=== PATIENT | female | born 1950 | race Asian ===

== ENCOUNTER 2018-08-10 08:38 | Inpatient (IN) | payer OTHER ==
[~2018-08-10] VITALS: Ht 162.6 cm; Wt 68.9 kg
[2018-08-10] MEDS ORDERED: SODIUM CHLORIDE 0.9% 1,000 ML IV ONE (09:04)
[2018-08-10 09:38] LABS: HEMATOCRIT. 36.4 % (36.0-48.0); HEMOGLOBIN. 12.3 g/dL (12.0-16.0); MEAN CORPUSCULAR HEMOGLOBIN 32.8 pg (28.0-32.0); MEAN PLATELET VOLUME 10.1 fl (7.4-10.4); PLATELET 231 x1000/uL (130-400); RED BLOOD CELL COUNT 3.75 mill/uL (4.2-5.4); RED CELL DISTRIBUTION WIDTH 13.5 % (11.6-14.6)
[2018-08-10 09:43] LABS: CHLORIDE 92 mEq/L (98-107)
[2018-08-10 09:45] LABS: PARTIAL THROMBOPLASTIN TIME 30.1 sec (23.4-31.0)
[2018-08-10 09:46] LABS: ETHANOL BLOOD < 10 mg/dL
[2018-08-10 09:54] LABS: CREATINE KINASE MB FRACTION 2.9 ng/mL (0.5-3.6)
[2018-08-10 10:12] LABS: CREATINE KINASE 8185 IU/L (26-192)
[2018-08-10 10:40] LABS: PLATELET ESTIMATE NORMAL
[2018-08-10] MEDS ORDERED: VANCOMYCIN 1 G PREMIX 200 ML IV ONE (13:30)
[2018-08-10] MEDS ORDERED: PIPERACILLIN/TAZ 3.375G PREMIX 50 ML IV ONE (13:30)
[2018-08-10] MEDS ORDERED: DOCUSATE SODIUM 100MG CAPSULE PO PRN (16:45)
[2018-08-10] MEDS ORDERED: ONDANSETRON HCL 4MG/2ML INJ IV PRN (16:45)
[2018-08-10] MEDS ORDERED: DIPHENHYDRAMINE 50MG/ML VIAL IV PRN (16:45)
[2018-08-10] MEDS ORDERED: ACETAMINOPHEN 650MG SUPP PR PRN (16:45)
[2018-08-10] MEDS ORDERED: GUAIFENESIN 200MG/10ML SUGAR FREE UDC PO PRN (16:45)
[2018-08-10] MEDS ORDERED: CLONIDINE 0.1MG TABLET PO PRN (16:45)
[2018-08-10] MEDS ORDERED: HYDROCODONE/ACETAMINOPHEN 5/325MG TABLET PO PRN (16:45)
[2018-08-10] MEDS ORDERED: IPRATROPIUM/ALBUTEROL 0.5-3(2.5)MG/3ML NEB INH PRN (16:45)
[2018-08-10] MEDS ORDERED: MAGNESIUM/ALUMINUM HYDROXIDE/SIMETHICONE 30ML UDC PO PRN (16:45)
[2018-08-10] MEDS ORDERED: ACETAMINOPHEN 325MG TABLET PO PRN (16:45)
[2018-08-10] MEDS ORDERED: ACETAMINOPHEN 650MG/20.3ML UDC GT PRN (16:45)
[2018-08-10] MEDS: SODIUM CHLORIDE 0.9% 1,000 ML IV SCH (17:04)
[2018-08-10 18:24] LABS: CLARITY URINE CLEAR (CLEAR); COLOR URINE DARK YELLOW (YELLOW); KETONES URINE 1+ (NEGATIVE); LEUKOCYTE ESTERASE URINE NEGATIVE (NEGATIVE); NITRITE URINE NEGATIVE (NEGATIVE); OCCULT BLOOD URINE 3+ (NEGATIVE); PH URINE 5.5 (4.5-8.0); PROTEIN URINE 1+ (NEGATIVE); SPECIFIC GRAVITY URINE 1.023 (1.005-1.030)
[2018-08-10] MEDS ORDERED: POTASSIUM CHLORIDE 20MEQ TABLET SR PO SCH (18:30)
[2018-08-10] MEDS ORDERED: DEXTROSE 50% WATER 50ML SYRINGE IV PRN (18:30)
[2018-08-10 18:35] LABS: *AMPHETAMINES SCREEN URINE NEGATIVE (NEGATIVE)
[2018-08-10 18:36] LABS: *BARBITURATES SCREEN URINE NEGATIVE (NEGATIVE); *BENZODIAZEPINES SCREEN URINE NEGATIVE (NEGATIVE); *COCAINE SCREEN URINE NEGATIVE (NEGATIVE); METHADONE URINE SCREEN NEGATIVE (NEGATIVE); OPIATES URINE SCREEN NEGATIVE (NEGATIVE)
[2018-08-10 18:37] LABS: CANNABINOID URINE SCREEN NEGATIVE (NEGATIVE); PHENCYCLIDINE URINE SCREEN NEGATIVE (NEGATIVE)
[2018-08-10 20:00] VITALS: BP 124/77
[2018-08-10 20:45] VITALS: BP 146/92
[2018-08-10] MEDS ORDERED: NA PHOS,M-B/NA PHOS,DI-BA ENEMA 118ML PR PRN (21:00)
[2018-08-10] MEDS: INSULIN LISPRO 100 UNITS/ML SUBCUT SCH (21:26)
[2018-08-10] MEDS: BLOOD SUGAR DIAGNOSTIC STRIP TEST SCH (21:26)
[2018-08-10] MEDS: SODIUM CHLORIDE 0.9% INJ 3ML FLUSH IVF SCH (21:27)
[2018-08-10 22:45] VITALS: BP 135/58
[2018-08-11] VITALS (12 sets, daily range): BP systolic 128–167; BP diastolic 74–92
[2018-08-11 01:29] LABS: CREATINE KINASE MB FRACTION 2.6 ng/mL (0.5-3.6)
[2018-08-11] MEDS: SODIUM CHLORIDE 0.9% 1,000 ML IV SCH ×2 (04:55→16:12)
[2018-08-11] MEDS: SODIUM CHLORIDE 0.9% INJ 3ML FLUSH IVF SCH ×3 (06:26→22:27)
[2018-08-11] MEDS: BLOOD SUGAR DIAGNOSTIC STRIP TEST SCH ×4 (06:26→20:45)
[2018-08-11 07:24] LABS: BASOPHILS % 0.2 % (0.0-2.0); EOSINOPHILS % 0.2 % (0.0-5.0); HEMATOCRIT. 34.8 % (36.0-48.0); HEMOGLOBIN. 11.5 g/dL (12.0-16.0); LYMPHOCYTES % 7.1 % (20.0-50.0); MEAN CORPUSCULAR HEMOGLOBIN 32.3 pg (28.0-32.0); MEAN CORPUSCULAR VOLUME 97.8 fL (81.0-99.0); MEAN PLATELET VOLUME 9.7 fl (7.4-10.4); MONOCYTES % 3.9 % (2.0-8.0); NEUTROPHILS % 88.6 % (40.0-76.0); PLATELET 254 x1000/uL (130-400); RED BLOOD CELL COUNT 3.56 mill/uL (4.2-5.4); RED CELL DISTRIBUTION WIDTH 13.5 % (11.6-14.6)
[2018-08-11 07:33] LABS: CHLORIDE 100 mEq/L (98-107)
[2018-08-11 07:43] LABS: LDL CHOLESTEROL 70 mg/dL (5-100)
[2018-08-11 07:44] LABS: HDL CHOLESTEROL 12 mg/dL (40-59)
[2018-08-11 07:47] LABS: CREATINE KINASE MB FRACTION 2.4 ng/mL (0.5-3.6)
[2018-08-11 07:56] LABS: CREATINE KINASE 3657 IU/L (26-192)
[2018-08-11] MEDS: INSULIN LISPRO 100 UNITS/ML SUBCUT SCH ×4 (08:05→20:45)
[2018-08-11] MEDS: GLIPIZIDE XL 2.5MG TABLET PO SCH (18:22)
[2018-08-12] VITALS (8 sets, daily range): BP systolic 130–159; BP diastolic 41–95
[2018-08-12] MEDS: SODIUM CHLORIDE 0.9% 1,000 ML IV SCH (06:22)
[2018-08-12] MEDS: SODIUM CHLORIDE 0.9% INJ 3ML FLUSH IVF SCH (06:22)
[2018-08-12] MEDS: BLOOD SUGAR DIAGNOSTIC STRIP TEST SCH ×2 (06:23→12:04)
[2018-08-12] MEDS: INSULIN LISPRO 100 UNITS/ML SUBCUT SCH ×2 (07:41→12:18)
[2018-08-12] MEDS: GLIPIZIDE XL 2.5MG TABLET PO SCH (07:44)
== END 2018-08-12 14:23 | disposition home or self-care (01) | DRG 70 ==
LOC: ER 08:53 → 3WST 13:35 → EDBEDREQ 13:40 → EDBEDREQSVC 13:40 → ENRESERV 15:37
PROVIDERS: ADMIT Family Medicine; ATTEND Family Medicine
DX: G93.41 Metabolic encephalopathy (principal); E43 Unspecified severe protein-calorie malnutrition; E87.2 Acidosis; E87.1 Hypo-osmolality and hyponatremia; E11.9 Type 2 diabetes mellitus without complications; E87.6 Hypokalemia; I10 Essential (primary) hypertension; W18.30XA Fall on same level, unspecified, initial encounter; Y93.89 Activity, other specified; Y92.89 Other specified places as the place of occurrence of the external cause; Y99.8 Other external cause status; Z68.26 Body mass index [BMI] 26.0-26.9, adult
CPT/HCPCS: 36415; 71045; 73502; 80061; 80305; 82550; 82553; 82962; 83605; 83880; 84484; 93005; 96365; 96366; 96367; 97116; 97162; 97166; 97530; 97535; 99285; G0482; J1815; J2543; J3370; J7030; A4315